=== PATIENT | female | born 1955 | race Caucasian/White ===

== ENCOUNTER 2019-04-01 05:21 | Day surgery (SDC) | payer OTHER ==
[~2019-04-01 05:21] MED LIST: CLONAZEPAM0.5 MG PO; KEFLEX500 MG PO; PERCOCET 5/3251 TAB PO; PROTONIX20 MG PO; SYNTHROID50 MCG PO; SYNTHROID88 MCG PO
== END 2019-04-01 16:00 | disposition home or self-care (01) ==
LOC: CIR.AMB 05:21
PROVIDERS: Plastic Surgery
PROC: 0HBV0ZZ Excision of Bilateral Breast, Open Approach (ICD-10-PCS; principal; 2019-04-01 11:15)
DX: N62 Hypertrophy of breast (principal)